=== PATIENT | female | born 1980 | race African-American/Black ===

== ENCOUNTER 2020-11-26 04:25 | Emergency (ER) | payer SELFPAY ==
[~2020-11-26] VITALS: Ht 160 cm; Wt 113.6 kg
[2020-11-26] MEDS ORDERED: FAMO20 PO (04:34)
[2020-11-26] MEDS ORDERED: METR500 PO (04:34)
[2020-11-26 04:55] VITALS: BP 136/78
[2020-11-26] MEDS ORDERED: ONDANSETRON HCL 4 MG TABLET PO ONE (06:00)
[2020-11-26] MEDS ORDERED: DiphenhydrAMINE HCL 50 MG/ML VIAL IM ONE (06:30)
[2020-11-26] MEDS ORDERED: ONDANSETRON HCL 4 MG/2 ML VIAL IM ONE (06:30)
== END 2020-11-26 06:55 | disposition home or self-care (01) ==
LOC: EMS 04:31
DX: A04.72 Enterocolitis due to Clostridium difficile, not specified as recurrent (principal); T37.3X5A Adverse effect of other antiprotozoal drugs, initial encounter; Y92.89 Other specified places as the place of occurrence of the external cause
CPT/HCPCS: 96372; 99284; J1200; J2405; Q0162